=== PATIENT | female | born 1990 | race Caucasian/White ===

== ENCOUNTER 2018-05-14 18:13 | Outpatient (CLI) | payer MEDICAID, SELFPAY ==
[2018-05-14 19:23] VITALS: BMI 37.3
--- NOTE | 2018-05-15 09:22 | OB.TRI.NOTE ---
History of Present Illness Date of Service: 05/14/18 Reason For Visit: R/O LABOR Date of Service: 05/14/18 Final ORTEGA Source: LMP Gestational age: 37.1 Allergies No Known Allergies Allergy (Verified 05/14/18 19:32) NST - FHR Rate Baby A Baseline: 140 Variability:: Moderate Accelerations:: 15 x 15 Decelerations:: None NST Reactive:: Yes FHR Category:: Category I Uterine Activity:: occasional and irregular Impression/Plan 27yo @ 37.1 wks- false labor dc home NST reactive category 1
== END 2018-05-14 20:30 | disposition home or self-care (01) ==
LOC: WPOUT 19:08 → WP 19:10
PROVIDERS: Family Provider Obstetrics & Gynecology; Visit Provider Obstetrics & Gynecology
DX: O47.03 False labor before 37 completed weeks of gestation, third trimester (principal); Z3A.37 37 weeks gestation of pregnancy
CPT/HCPCS: 59025; 59050; 99218; G0378

== ENCOUNTER 2018-05-23 04:50 | Inpatient (IN) | payer MEDICAID, SELFPAY ==
[2018-05-23 05:20] VITALS: BMI 37.3
[2018-05-23] MEDS: Lactated Ringers 1,000 ML 50 ML IV ×3 (05:30→08:19)
[2018-05-23 05:53] LABS: Hemoglobin 11.2 g/dl (12.0-15.0); Mean Corpuscular Hgb 27.7 pg (27.0-32.0); Mean Corpuscular Volume 86.4 fL (81-99); Mean Platelet Vol. 11.1 fl (6.2-12.0); Platelet Count 244 K/mm3 (150-450); RBC Distribution Width CV 14.2 % (11.6-14.6); RBC Distribution Width SD 43.4 fl (35.1-43.9); Red Blood Count 4.05 M/mm3 (4.2-5.4); White Blood Count 14.4 K/mm3 (4.4-11.0)
[2018-05-23 06:26] LABS: Scan Indicated on CBC? Y/N NO
--- NOTE | 2018-05-23 06:33 | HP.PCM_ITS ---
- Problem List (1) Active labor at term Status: Acute (2) Rh negative state in antepartum period Status: Acute (3) History of depression Status: Acute (4) Anemia Status: Acute History Date of Admission: 05/23/18 Final ORTEGA: 06/03/18 Final ORTEGA Source: LMP Gestational age: 38 Weeks and 3 Days History of this : This is a 27 year-old, G 7, P 2042, at 38 weeks gestational age who presented in labor at 5 cm dilated. No vb, lof. +FM. Medical History: Medical History (Last Updated 05/23/18 @ 06:33 by Martha Strickland DO) Medical Z33.2 Surgical History: Surgical History (Last Updated 05/23/18 @ 06:33 by Martha Strickland DO) H/O oral surgery Z98.890 History of colposcopy Z98.890 Allergies No Known Allergies Allergy (Verified 05/23/18 05:42) Home Medications: Home Medications Vits [Prenatabs FA ] 1 tablet PO DAILY 05/09/13 Famotidine 10 mg PO BID 05/14/18 Smoking Status: Former smoker Number of Fetus(es): 1 Heart Tracin/mod sudhir/+accels/no decels TOCO Analysis: irritability History Past Pregnancies: Past Pregnancies Delivery Date Name GA/Weeks Outcome Route Weight Infant Gender Labor Length Anesthesia Delivery Location Provider FOB term term sab sab sab tab Labs: GBS neg, 1 hr GTT 126, Rh neg, antibody screen neg with 28 wk labs, syphilis NR, RI, hep B neg, HIV NR, GC/CT neg, UDS neg Expected Infant Delivery Method: Spontaneous Vaginal Number of Visits: 12 Review of Systems Gynecological: Reports: - - +Ctx's, no vb, no lof. +FM Physical Exam General: Alert, No apparent distress HEENT: Atraumatic Lungs: - - No increased resp effort Abdomen: Gravid Extremities:: No edema Neurological: Neuro grossly intact Estimated gestational size: Appropriate for gestational size Presentation: Cephalic Cervix Dilation (cm): 7 - exam per agronomy technician/Plan All Active Problems Active labor at term (Acute) Rh negative state in antepartum period (Acute) History of depression (Acute) History of delivery (Acute) Anemia (Acute) This is a 27 year-old, G 7, P 2, at 38 weeks gestational age who presented in labor at 5 cm dilated. - Admit for routine intrapartum care - GBS neg - Pt desires epidural
[2018-05-23] MEDS: fentaNYL-bupivacaine (epidural) 100 ML BAG EPIDURAL (06:59)
[2018-05-23] MEDS: 0.9% Saline Lock 10 ML Syringe IV ×2 (07:22→12:31)
[2018-05-23] MEDS: Ondansetron 4 MG/2 ML Vial IV (07:22)
--- NOTE | 2018-05-23 09:22 | PCM.PN.OB ---
Patient Problems: Active and Suspected Problems (Last Updated 05/23/18 @ 06:33 by Martha Strickland DO) Active labor at term (Acute) Rh negative state in antepartum period (Acute) History of depression (Acute) History of delivery (Acute) Anemia (Acute) Subjective: Resting comfortably in bed with epidural. Family at bedside. Objective: FHR 170, moderate variability, accels, no decels. TOCO: every 2-3 minutes. Cervix 9cm/90%/-1. AROM for large amount of clear fluid. 9cm/100%/+1. Patient not feeling pressure. - Physical Exam Weight: 210 lb 12.191 oz Body Mass Index (BMI) 37.3 Intake and Output for Last 24 Hours 05/21/18 05/22/18 05/23/18 23:59 23:59 23:59 Intake Total 1999 / 1999 Output Total 100 / 100 Balance 1900 / 1900 Laboratory Tests Past 24 Hrs 05/23/18 05/23/18 05/23/18 05:30 05:30 05:30 WBC 14.4 H RBC 4.05 L Hgb 11.2 L Hct 35.0 L MCV 86.4 MCH 27.7 MCHC 32.0 RDW 14.2 RDW Differential 43.4 Plt Count 244 MPV 11.1 Blood Type Cancelled A NEGATIVE A1 Antigen Typing Cancelled Rho(D) Type Cancelled Antibody Screen Cancelled NEGATIVE Medical Necessity - Tobacco Use Smoking Status: Former smoker Assessment/Plan All Active Problems (Last Updated 05/23/18 @ 06:33 by Martha Strickland DO) Active labor at term (Acute) Rh negative state in antepartum period (Acute) History of depression (Acute) History of delivery (Acute) Anemia (Acute) A;Active Labor, progressing Category 2 FHT P: 1) Labor progressing, continue with expectant management. 2) Side lying with peanut ball. Anticipate vaginal delivery soon. 3) updated on patient status and tachycardia. FHR increased after epidural placed and ephedrine dose. Patient afebrile. Maternal HR 120 but has been since admission. Will continue to monitor.
[2018-05-23] MEDS: Oxytocin 30 units/NS 500 ml 30 UNITS/500 ML IV.SOLN 334 UNITS IV (09:45)
--- NOTE | 2018-05-23 10:01 | PCM.OB.VAG ---
- Problem List (1) (normal spontaneous vaginal delivery) Status: Acute (2) Shoulder dystocia, delivered Status: Acute Vaginal Delivery Maternal Presentation: Active Labor Method of Induction: Amniotomy Amniotic Membrane Rupture Type: Artificial Amniotic Fluid Description: Clear Final ORTEGA: 06/03/18 Gestational age: 38 Weeks and 3 Days Date of Procedure: 05/23/18 Pre-Operative Diagnosis: Active Labor Post-Operative Diagnosis: Surgery/ Procedure Performed: Spontaneous Vaginal Delivery Type of Anesthesia: Epidural Description of Procedure: Progressed in active labor and began to feel pressure. Complete and feeling pressure to push. of viable male over intact perineum. APGARS 8,9 with weight pending. Complicated by mild shoulder dystocia. Head delivered and shoulders not forthcoming. McRobert's position and then retrieval of posterior arm as posterior nuchal hand already present. 15 second should dystocia. Infant delivered without further complications, placed on maternal abdomen, spontaneous cry. Mouth and nares suctioned for secretions. Infant with diffuse papular white rash, peds notified. No signs of chorioamnionitis. No maternal fever, or foul odor. Maternal HR elevated upon admission and FHR increased after epidural placed and ephedrine given. FHR returned to 150's prior to delivery. Pitocin started for active 3rd stage management. Placenta delivered with maternal effort, 3 vessel cord, intact. Fundus firm and hemostasis achieved. Perineum inspected and intact, no repair needed. EBL 200ml. Mom and baby stable. Family bonding well. Mom planning on . notified of delivery. Cord gases obtained. Sponge and instrument count correct. Presentation: Vertex Placental Delivery Description: Spontaneous Placenta Disposition: [facility] Cord Vessel Description: 3 Vessels Cord Gases drawn per routine: ABG, VBG Cord Entanglement: None Estimated Blood Loss: 200 ml A gender: Male (1 minute): 8 (5 minute): 9 Episiotomy Description: None Laceration: None Medications given after delivery: IV Pitocin Complications: None - Mild Should dystocia. McRobert's and posterior arm retriveal lasting 15 seconds from head to body delivery.
[2018-05-23] MEDS: Oxytocin 30 units/NS 500 ml 30 UNITS/500 ML IV.SOLN 167 UNITS IV (10:15)
[2018-05-23] MEDS: Ibuprofen 600 MG Tablet PO (13:26)
[2018-05-23 16:00] VITALS: BP 119/70; PULSE 104; RESP 18; TEMP 37.1
[2018-05-23 20:20] VITALS: BP 128/81; PULSE 92; RESP 16; TEMP 37.4
[2018-05-24 00:05] VITALS: BP 134/87; PULSE 96; RESP 16; TEMP 36.8
[2018-05-24] MEDS: Ibuprofen 600 MG Tablet PO ×2 (00:30→10:04)
[2018-05-24 05:05] VITALS: BP 114/70; PULSE 96; RESP 16; TEMP 36.6
--- NOTE | 2018-05-24 07:15 | PCM.PN.OB ---
Patient Problems: Active and Suspected Problems (Last Updated 05/23/18 @ 06:33 by Martha Strickland DO) Active labor at term (Acute) Rh negative state in antepartum period (Acute) History of depression (Acute) History of delivery (Acute) Anemia (Acute) (normal spontaneous vaginal delivery) (Acute) Shoulder dystocia, delivered (Acute) Subjective: Doing well per patient and nursing staff. Ambulating, voiding, and passing flatus. without difficulty. Denies LERMA,vis chg's,CP,SOB,increased vaginal bleeding or clots. Would like D/C home today. - Physical Exam General: Alert, Oriented x3, Cooperative HEENT: Atraumatic, Normocephalic Neck: Supple Lungs: Clear to auscultation, Normal air movement, No rhonchi, No wheeze Cardiovascular: Regular rate, Regular Rhythm, No murmurs Abdomen: Bowel Sounds Present, Soft, - - Fundus firm, 2 below U Extremities: No edema Psych/Mental Status: Normal Affect, Appropriate Vital Signs Temp Pulse Resp BP 97.9 F 96 16 114/70 05/24/18 05:05 05/24/18 05:05 05/24/18 05:05 05/24/18 05:05 Oxygen Delivery Method Room Air Weight: 210 lb 12.191 oz Body Mass Index (BMI) 37.3 Intake and Output for Last 24 Hours 05/22/18 05/23/18 05/24/18 23:59 23:59 23:59 Intake Total 1999 / 1999 Output Total 280 / 280 Balance 1720 / 1720 Medical Necessity - Tobacco Use Smoking Status: Former smoker Assessment/Plan All Active Problems (Last Updated 05/23/18 @ 06:33 by Martha Strickland DO) Active labor at term (Acute) Rh negative state in antepartum period (Acute) History of depression (Acute) History of delivery (Acute) Anemia (Acute) (normal spontaneous vaginal delivery) (Acute) Shoulder dystocia, delivered (Acute) A:PPD #1 P: 1) D/C home today 2) Routine , discharge, and instructions given. 3) Return in 2 and 6 weeks .
[2018-05-24 08:55] VITALS: BP 122/77; PULSE 94; RESP 16; TEMP 36.4; O2SAT 99
[2018-05-24] MEDS: Prenatal Vits Tablet 1 TABLET PO (10:04)
[2018-05-24] MEDS: Senna/Docusate Sodium 1 Tablet PO (10:04)
[2018-05-24] MEDS: Famotidine 20 MG Tablet 10 MG PO (10:05)
--- NOTE | 2018-05-24 12:06 | DCINST_ITS ---
Discharge Diet: No Restrictions Discharge Activity: Return to Normal Activity, May not drive while taking narcotic pain medications., May Shower, May Take a Tub Bath May resume sexual activity in: 4-6 weeks Weight Bearing Status: Full weight bearing Additional Activity Instructions:: Nothing in the vagina for 4-6 weeks. You may return to work/school in 6 weeks. Call your doctor if your incision/area has: Continuous Slow Oozing, Sudden Increased Bleeding, Increased Pain/ Swelling, Increased Redness, Foul Smelling Discharge Call your doctor if you observe: Fever of 101 or Higher, Inability to urinate, Inability to have a bowel movement, Using more than one pad per hour, Shortness of breath, Chest pain, Increased palpitations (irregular heartbeat), Calf discomfort, Uncontrolled pain Additional Instructions: If you experience any of the following, contact your healthcare provider. * Bleeding that soaks a pad every hour for 2 hours * Fever 100.4 or higher * Unrelieved incision or abdominal pain * Swelling, redness, discharge or bleeding from your incision or episiotomy site * Your incision begins to separate * Problems urinating (including inability to urinate or burning while urinating). * Visual changes * Severe headache * Flu-like symptoms * Pain or redness in one of both of your breasts * Pain, warmth, tenderness or swelling in your legs, especially the calf area * Frequent nausea and vomiting * Symptoms of depression or anxiety If you experience any of the following, call 911 or go to the nearest Emergency Room. * Chest pain * Problems breathing * Seizure activity * Partial or complete paralysis of a body part, slurred speech, weakness or drooping of the face, or a sudden inability to walk or hold your balance Allergies/Adverse Reactions: Allergies No Known Allergies Allergy (Verified 05/23/18 05:42) Medications to take at Discharge Vits [Prenatabs FA ] 1 tablet PO DAILY 05/09/13 Famotidine 10 mg PO BID 05/14/18 Please Follow Up With: Alysa Rosenberg MD When: Call to make an appointment with your doctor in 2 and 6 weeks. If you had elevated Blood Pressure or 4th degree laceration you will need to be seen in 2 weeks. Test Results: Test results from this visit will be discussed in further detail at your follow- up appointment, if applicable.
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
--- NOTE | 2018-05-25 14:39 | CASEMGMT ---
Addendum entered and electronically signed by Deborah Barrow 05/26/18 16:48: Reviewed and approve BODY MAKE UP ARTIST student internal medicine specialist documentation below. -ARTIE Whipple, PATROL POLICE SERGEANT Original Note: Social Work Labor and Delivery Early Head Start referral faxed securely to Rosalind Hickey at [facility] via verbal approval from [facility]. No other services requested or indicated at this time. -NATHAN Low Social Work Tack Driller.
== END 2018-05-24 13:55 | disposition home or self-care (01) | DRG 560 ==
PROVIDERS: Obstetrics & Gynecology; Admitting Provider Obstetrics & Gynecology; Referring Provider Obstetrics & Gynecology; Visit Provider Obstetrics & Gynecology
DX: O66.0 Obstructed labor due to shoulder dystocia (principal); Z3A.38 38 weeks gestation of pregnancy; Z37.0 Single live birth; Z87.891 Personal history of nicotine dependence; Z67.91 Unspecified blood type, Rh negative; O76 Abnormality in fetal heart rate and rhythm complicating labor and delivery
CPT/HCPCS: 59050; 85027; 86850; 86900; 86901; 99218; J7120; A4216; G0378; J2405; J3490

== ENCOUNTER 2018-06-30 13:54 | Day surgery (SDC) | payer MEDICAID, SELFPAY ==
--- NOTE | 2018-06-28 11:48 | HP.PCM_ITS ---
History and Physical Date of Admission: 06/30/18 Susanne Knutson is a 27 year old female who presents for sterilization consultation. Pt would desires permanent sterilization- declining. Pt denies CP, SOB, dizziness. ? PAST?MEDICAL?HISTORY PAST MEDICAL HISTORY Diagnosis Date ? Abnormal glandular Papanicolaou smear of cervix 2010 ? Abn. Pap smear (cervix) ? 04/2010 ? Anemia ? ? Chlamydia 2008 ? Complete miscarriage ? ? Pt has had 2 miscarriage's ? Depression complicating , antepartum 04/04/2013 ? Gonorrhea 2008 ? depression ? ? RECURRENT UTI ? ? none since 2015 ? Rh negative status during 11/16/2012 ? PAST?SURGICAL?HISTORY PAST SURGICAL HISTORY Procedure Laterality Date ? COLPOSCOPY (VAGINOSCOPY) ? ? ? Colposcopy ? MED INC ALL EX DRUG ? 04/2010 ? ORAL SURGERY PROCEDURE ? ? ? FAMILY?HISTORY FAMILY HISTORY Problem Relation Age of Onset ? No Known Problems Mother ? ? No Known Problems Father ? ? Diabetes Paternal Grandmother ? ? Heart Paternal Grandmother ? ? Hypertension Paternal Grandmother ? ? Heart Paternal Grandfather ? ? Asthma Son ? ? Asthma Daughter ? ? Asthma Sister ? ? SOCIAL?HISTORY Social History Socioeconomic History Marital status: Single Spouse name: Not on file Number of children: 2 Years of education: 15 Highest education level: Not on file Social Needs Financial resource strain: Not on file Food insecurity - worry: Not on file Food insecurity - inability: Not on file Transportation needs - medical: Not on file Transportation needs - non-medical: Not on file Occupational History Occupation: [employer] Employer: [employer] Occupation: [employer] Employer: [employer] Tobacco Use Smoking status: Former Smoker Years: 6.00 Types: Cigarettes Quit date: 10/28/2012 Years since quittin.6 Smokeless tobacco: Never Used Substance and Sexual Activity Alcohol use: No Drug use: No Sexual activity: Yes Partners: Male Other Topics Concerns: Not on file Social History Narrative Not on file ? CURRENT?MEDICATIONS ? Current Outpatient Medications: Qeamdxnc-Yn-Woq-Fe-FA ( VITAMIN) tab Take 1 tablet by mouth. simethicone, chewable (MYLICON) 80 mg chewable tablet Take 1 tablet by mouth every 6 hours as needed. ibuprofen (MOTRIN) 600 mg tablet Take 1 tablet by mouth every 6 hours as needed. FOR PAIN. ? No current facility-administered medications for this visit. Allergies As of Date: 06/20/2018 (No Known Allergies) Fully Assessed 06/20/2018 ? ? REVIEW OF SYSTEMS Abdomen: No abdominal pain, nausea, vomiting, diarrhea, or constipation. Bladder: no dysuria .. Expanded ROS: GENERAL: No weight loss, malaise or fevers Allergies and current medication updated:Yes ? EXAM: BP 108/70 Ht 5' 3.5 (1.61m) Wt 183 lb (83.0kg) BMI 31.90 kg/(m^2). GENERAL: pleasant, female in no apparent distress HEENT: Normocephalic, atraumatic, mucus membranes moist and no lesions DERMATOLOGY: Normal, without lesions, non-icteric and non-hirsute CARDIAC: regular rate and rhythm CHEST: Clear to auscultation Normal inspiratory effort NEURO: alert and oriented x3,exam grossly non-focal ? ASSESSMENT AND PLAN: Encounter Diagnosis ? ? ICD-10-CM ? 1. Consultation for female sterilization Z30.09 ? ? 2. Pt scheduled for Laparoscopic bilateral salpingectomy - pt declines LARCs. 3. Pt has been counseled on risks/benefits and alternatives of surgery including but not limited to anesthesia, bleeding, infection, injury to pelvic structures including bowel, bladder, ureters and vessels. Pt wishes to proceed with surgery at this time. 4. Post op pain meds given (motrin, and mylicon) ? Alysa Rosenberg MD ?
[2018-06-30] MEDS: Bupivacaine Mpf 0.5% 30 ML VIAL (13:55)
[2018-06-30 14:15] VITALS: BP 122/68; PULSE 81; RESP 16; TEMP 37; O2SAT 100; BMI 32.4
[2018-06-30 14:15] LABS: Internal QC Validated? YES +Cl - CLEAR BKGD; Pregnancy, Urine Negative Negative
--- NOTE | 2018-06-30 14:41 | PCM.OPRPT ---
Report of Operation Date of Procedure: 06/30/18 Pre-Operative Diagnosis: desires sterilization Post-Operative Diagnosis: same Surgery/Procedure Performed:: Laparoscopic Bilateral salpingectomy Description of Surgical Findings:: normal tubes and ovaries bilaterally Type of Anesthesia:: General Special Medications: marcaine Specimen's removed: Bilateral tubes Drains: none Estimated Blood Loss (mL): 5 Fluids Replaced: 800 Description of Procedure: operative note: After informed consent was obtained patient was taken to the operating room she was placed in supine position she was given anesthesia. She was then placed in the [facility] stirrups and she was prepped and draped in normal sterile fashion. Bladder was drained prior to the start of procedure approximately 50 cc of clear yellow urine was expelled. At this time attention was turned to the vaginal portion where weighted speculum placed at posterior fornix vagina single-tooth tenaculum was used to gently grasp the internal the cervix. uterus was gently sounded to approximately 10cm. Uterine manipulator was placed without difficulty. Legs then placed in parallel with the abdomen the tenaculum and the weighted speculum were removed. 2 towel clamps were placed superior to umbilicus. After Marcaine was injected in umbilicus a small incision was made and a 5 mm trocar was placed under direct visualization. CO2 gas was used to insufflate the intra-abdominal cavity. Upon inspection no gross abnormalities uterus tubes and ovaries appeared to be normal. At this time then the LLQ and RLQ ports were placed again Marcaine was injected small incision was made a knife and the 5 mm trocar was placed. At this time then tubes were traced back to the fimbriated ends. Ligasure was used to coagulate and ligate along mesosalpinx bilaterally until tubes removed completely. Good hemostasis was appreciated. At this time procedure was deemed complete successful. The gas was desufflated on from the intra-abdominal cavity. The trochars were removed. Skin was closed using 4-0 Monocryl in a subcutaneous fashion. Dermabond glue was placed. Instrument lap and needle counts were correct ?2. The uterine manipulator was removed. Vaginal sweep was performed it was negative. There were no complications anticipated normal postoperative course for this patient. Grafts/Implants Used: none - Complications none - Admit VTE Documentation VTE Present on Admission: Yes VTE Mechan Device Prophylaxis: SCD's VTE Pharm Prophylaxis ordered?: No
--- NOTE | 2018-06-30 15:00 | FALS_PTH ---
PATIENT: GHAZAL ACOSTA LOC: [facility] [place] U#:[id number] AGE/SX: 27/F ROOM: RE06/30/[address]: Dr. Alysa Rosenberg, MDDOB: 1990 BED: DIS: 06/30/2018 SPEC #: [id number] RECD: 07/01/18 07:32 STATUS: PERNELL VICTORIANO #: [id number] OPAL: 06/30/18 15:[address]: Alysa Rosenberg DEPT: SURGICAL PATHOLOGY RECD BY: Cody Brand ENTERED: 07/01/18 10:03 SP TYPE: FALL TUBES OTHR DR: No Primary Care Phys Tissues: Fallopian tube Procedures: Surgery Specimen Level II HEADER OPERATION: Laparoscopic salpingectomy PRE-OP DIAGNOSIS: Sterilization request TISSUE SUBMITTED: Bilateral fallopian tubes MICROSCOPIC DIAGNOSIS Bilateral fallopian tubes, salpingectomy: Bilateral fallopian tubes including fimbrial ends, no pathologic diagnosis. SJ:ori 07/04/18 MICROSCOPIC DESCRIPTION Slides are reviewed. GROSS DESCRIPTION Received is one container labeled with the patient's name and designated bilateral fallopian tubes. The specimen consists of two fallopian tubes with an average length of 5 cm and has an average diameter of 0.6 cm. Both fallopian tubes have normal fimbriated ends. No mass lesions are identified. One fallopian tube is inked black. Senior Marketing Specialist sections of both fallopian tubes are submitted in one cassette. / AM:ori 07/01/18 TC:4 CPT: 94308 x2
--- NOTE | 2018-06-30 15:24 | DCINST_ITS ---
Discharge Diet: No Restrictions, - - Increase fluid intake for 48 hours. Discharge Activity: Return to Normal Activity, May Drive - when you are no longer taking narcotic pain medications., May Shower, May Take a Tub Bath - in 7 days., - - Ambulate often the next week after surgery. May resume sexual activity in: 2 weeks Lifting Restrictions: 20 Additional Activity Instructions:: Nothing in the vagina for the next 5 days. Call your doctor if your incision/area has: Continuous Slow Oozing, Sudden Increased Bleeding, Increased Pain/ Swelling, Increased Redness, Foul Smelling Discharge, Swelling at the incision site Call your doctor if you observe: Fever of 101 or Higher Cleanse incision/area with: - - skin glue on incisions- you may shower and let soap and water run over them- dab dry. do not pick off glue Allergies/Adverse Reactions: Allergies No Known Allergies Allergy (Verified 06/30/18 14:14) Medications to take at Discharge Vits [Prenatabs FA ] 1 tablet PO DAILY 05/09/13 Primary Care Physician: Care Physician,No Primary [Primary Care Provider] - Test Results: Test results from this visit will be discussed in further detail at your follow- up appointment, if applicable. Please Follow Up With: Alysa Rosenberg MD When: as scheduled
[2018-06-30 15:30] VITALS: BP 104/81; BP 122/68; PULSE 81; RESP 18; TEMP 36.9; O2SAT 94
[2018-06-30 15:45] VITALS: BP 116/73; BP 122/68; PULSE 82; RESP 18; O2SAT 100
[2018-06-30 15:58] VITALS: BP 122/68; PULSE 74; RESP 18; O2SAT 100
[2018-06-30 16:15] VITALS: BP 113/68; BP 122/68; PULSE 65; RESP 18; TEMP 36.7; O2SAT 100
[2018-06-30 16:45] VITALS: BP 122/68
== END 2018-06-30 16:53 | disposition home or self-care (01) ==
LOC: SDC 13:56 → AC 13:57
PROVIDERS: Referring Provider Obstetrics & Gynecology; Visit Provider Obstetrics & Gynecology
PROC: (CPT 58661; principal; 2018-06-30 14:45)
DX: Z30.2 Encounter for sterilization (principal); Z87.891 Personal history of nicotine dependence
CPT/HCPCS: 58661; 81025; 88302; J7120; J2405

== ENCOUNTER 2018-09-23 22:50 | Emergency (ER) | payer OTHER, MEDICAID, SELFPAY ==
[2018-09-23 22:50] VITALS: BP 162/93; PULSE 86; RESP 18; TEMP 36.7; O2SAT 100; BMI 32.4
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
--- NOTE | 2018-09-23 23:05 | RAD_ITS ---
HISTORY:RIGHT SHOULDER PAIN FROM MOVING PATIENT THIS EVENING. RIGHT SHOULDER PAIN FROM MOVING PATIENT THIS EVENING. COMPARISON: None FINDINGS: # of images incl. paperwork: 2 XR Shoulder Min 2 Views: Right BONE AND JOINTS: No acute fracture or subluxation. SOFT TISSUES: There is increase in density seen within the region of the rotator cuff may represent mild calcific tendinitis. No radiopaque foreign body. RAD/Shoulder min 2 Views IMPRESSION: Question calcific tendinitis at 2320 Reported and signed by: Paulette Dooley DO Electronically Signed: Paulette Dooley DO at 23:19 EDT Tel , Service support ,
[2018-09-23] MEDS: Naproxen 500 MG Tablet PO (23:06)
[2018-09-24] MEDS: HYDROcodone Bitartrate/Apap 5/325 Tablet PO (00:18)
[2018-09-24 00:23] VITALS: BP 146/78; PULSE 86; RESP 17; O2SAT 98
== END 2018-09-24 00:24 | disposition home or self-care (01) ==
PROVIDERS: Emergency Provider Emergency Medicine
DX: S43.401A Unspecified sprain of right shoulder joint, initial encounter (principal); X50.3XXA Overexertion from repetitive movements, initial encounter; Y93.89 Activity, other specified; Y92.89 Other specified places as the place of occurrence of the external cause; Y99.0 Civilian activity done for income or pay
CPT/HCPCS: 73030; 99284

== ENCOUNTER → 2018-10-12 12:33 | Outpatient (CLI) | payer OTHER, SELFPAY ==
[2018-09-29 08:05] VITALS: BMI 32.4
--- NOTE | 2018-10-12 12:36 | MRI_ITS ---
STUDY: MRI RIGHT SHOULDER REASON FOR EXAM: Pain with limited range of motion, injury 09/22/2018, evaluate for rotator cuff tear. TECHNIQUE: Standardized fat and water weighted pulse sequences were obtained in all 3 orthogonal planes. COMPARISON: Radiographs 09/23/2018. FINDINGS: There are lobulated signal voids at the anterior aspect of the supraspinatus tendon (T2 sagittal images 14-16) with adjacent inflammation (T2 coronal images 14, 15) consistent with calcific tendinitis. There is no discrete tear of the supraspinatus tendon. Normal infraspinatus tendon. Normal subscapularis tendon. Normal teres minor tendon. Normal supraspinatus muscle. There are low-grade strains of the infraspinatus and teres minor muscles (T2 coronal images 1-4). Normal subscapularis muscle. Normal glenohumeral articulation. There is mild reactive bone edema in the anterior aspect of the greater tuberosity. Normal biceps labral complex. Normal intracapsular long biceps tendon. Normal labrum. Normal capsulo- ligamentous complex. Normal acromioclavicular articulation. There is a Type II morphology (curved), with a neutral orientation. There is a small volume of subacromial-subdeltoid bursal fluid (T2 coronal images 12-14). Normal visualized coracohumeral and coracoacromial ligaments. Normal deltoid muscle. Normal trapezius muscle. MRI/Upper Ext Joint Only(Routine) IMPRESSION: Supraspinatus calcific tendinitis. Low-grade strains of the infraspinatus and teres minor muscles. Very mild subacromial-subdeltoid bursitis. No demonstrated rotator cuff tear. Electronically Signed: Antolin Esparza MD at 13:47 EDT Tel , Service support ,
== END ==
PROVIDERS: Referring Provider Orthopaedic Surgery; Visit Provider Orthopaedic Surgery
DX: S46.011A Strain of muscle(s) and tendon(s) of the rotator cuff of right shoulder, initial encounter (principal)
CPT/HCPCS: 73221

== ENCOUNTER 2018-12-16 09:30 | Outpatient (RCR) | payer OTHER, SELFPAY ==
[2018-10-27 13:09] VITALS: BMI 32.4
[2018-11-11 13:35] VITALS: BMI 32.4
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
--- NOTE | 2018-12-16 09:55 | HP.PTDCSUM ---
HP - PT D/C Summary It has been my pleasure to treat GHAZAL ACOSTA under orders from Lucie Ambrose DO, for the diagnosis of RIGHT SHOULDER STRAIN for a total of 8 visit(s). Discharge Date: 12/16/18 Please see the following information for a summary of their discharge status. - Subjective Subjective: PATIENT REPORTS THAT USING HER SHOULDER TO CARRY AND LIFT THINGS IS A LOT BETTER. WENT BACK TO WORK AT [employer] 12/01/18 AND IT IS GOING FINE. NOT SURE WHEN SHE IS GOING TO GO BACK TO WORK AT THE [employer]. IT FEELS GOOD TODAY. PATIENT REPORTS SHE CAN DO THE EX'S BY HERSELF NOW AND SHE PLANS TO GRADUALLY RETURN TO HER GYM EX'S. - Pain R shoulder Pain Intensity (Out of 10): 1 - Overall Improvement % Improvement: 85 - Objective Objective/Function: PATIENT HAS FULL PAINFREE RIGHT SHOULDER ROM AND STRENGTH ALL PLANES WITH TESTING TODAY. SHE IS INDEP WITH AN EX PROGRAM AND BACK TO WORK. ALL GOALS MET. - Goals Goal 1:: DECREASE C/O RIGHT SHOULDER PAIN Goal Progress: Goal Met Goal 2:: IMPROVE RIGHT UE FUNCTIONAL ROM Goal Progress: Goal Met Goal 3:: IMPROVE RIGHT UE FUNCTIONAL STRENGTH Goal Progress: Goal Met Goal 4:: INSTRUCT IN PROPHYLAXIS Goal Progress: Goal Met - Plan Plan: D/C TO HEP - PATIENT AGREEABLE. - D/C Information If there are questions or concerns regarding this patient's physical therapy, please feel free to call me at [phone]. Thank you for the referral of this patient. Sincerely, Belkys Lewis, PT, Cert MDT
== END 2018-12-16 19:00 | disposition home or self-care (01) ==
LOC: PT 09:30
PROVIDERS: Referring Provider Orthopaedic Surgery; Visit Provider Orthopaedic Surgery
DX: S46.911D Strain of unspecified muscle, fascia and tendon at shoulder and upper arm level, right arm, subsequent encounter (principal)
CPT/HCPCS: 97110; 97140; 97161; 97530

== ENCOUNTER 2020-01-08 19:23 | Outpatient (RCR) | payer MEDICAID, SELFPAY ==
[2018-11-28 09:38] VITALS: BMI 32.4
== END 2020-01-10 23:59 ==
LOC: EMPH 19:23
PROVIDERS: Visit Provider Family Medicine Geriatric Medicine
DX: Z11.59 Encounter for screening for other viral diseases (principal)
CPT/HCPCS: 87635; U0003

== ENCOUNTER → 2020-01-22 09:08 | Outpatient (CLI) | payer MEDICAID, SELFPAY ==
[2018-11-28 09:38] VITALS: BMI 32.4
[2020-01-22 10:22] LABS: Thyroid Stim Hormone (TSH) 2.66 uIU/mL (0.358-3.74)
== END ==
PROVIDERS: PCP Family Medicine; Referring Provider Registered Nurse; Visit Provider Registered Nurse
DX: Z00.00 Encounter for general adult medical examination without abnormal findings (principal)
CPT/HCPCS: 36415; 84443

== ENCOUNTER 2020-02-09 06:37 | Outpatient (RCR) | payer MEDICAID, SELFPAY ==
[2018-11-28 09:38] VITALS: BMI 32.4
== END 2020-02-10 23:59 ==
LOC: EMPH 06:37
PROVIDERS: PCP Family Medicine; Referring Provider Family Medicine Geriatric Medicine; Visit Provider Family Medicine Geriatric Medicine
DX: Z03.818 Encounter for observation for suspected exposure to other biological agents ruled out (principal)
CPT/HCPCS: 87426

== ENCOUNTER 2020-03-05 11:52 | Outpatient (RCR) | payer MEDICAID, SELFPAY ==
[2018-11-28 09:38] VITALS: BMI 32.4
== END 2020-03-11 23:59 ==
LOC: EMPH 11:52
PROVIDERS: PCP Family Medicine; Referring Provider Family Medicine Geriatric Medicine; Visit Provider Family Medicine Geriatric Medicine
DX: Z03.818 Encounter for observation for suspected exposure to other biological agents ruled out (principal)
CPT/HCPCS: 87426

== ENCOUNTER 2020-03-14 14:00 | Outpatient (RCR) | payer MEDICAID, SELFPAY ==
[2018-11-28 09:38] VITALS: BMI 32.4
== END 2020-04-11 23:59 ==
LOC: EMPH 14:00
PROVIDERS: PCP Family Medicine; Referring Provider Family Medicine Geriatric Medicine; Visit Provider Family Medicine Geriatric Medicine
DX: Z03.818 Encounter for observation for suspected exposure to other biological agents ruled out (principal)
CPT/HCPCS: 87426

== ENCOUNTER 2020-04-04 20:52 | Emergency (ER) | payer MEDICAID, SELFPAY ==
[2018-11-28 09:38] VITALS: BMI 32.4
[2020-04-04 20:53] VITALS: BP 141/94; PULSE 86; RESP 15; TEMP 36.3; O2SAT 99; BMI 35.4
[2020-04-04 20:56] VITALS: O2SAT 97
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
== END 2020-04-04 21:57 | disposition home or self-care (01) ==
PROVIDERS: Emergency Provider Emergency Medicine; PCP Family Medicine
DX: S80.211A Abrasion, right knee, initial encounter (principal); V43.52XA Car driver injured in collision with other type car in traffic accident, initial encounter; Y93.9 Activity, unspecified; Y92.410 Unspecified street and highway as the place of occurrence of the external cause; Y99.9 Unspecified external cause status; Z87.891 Personal history of nicotine dependence
CPT/HCPCS: 71046; 73564; 99284

== ENCOUNTER 2021-01-09 12:43 | Emergency (ER) | payer MEDICAID, SELFPAY ==
[2021-01-09 12:44] VITALS: BP 137/98; PULSE 122; RESP 24; TEMP 35.9; O2SAT 98; BMI 40.7
[2021-01-09 12:54] VITALS: O2SAT 98
--- NOTE | 2021-01-09 13:06 | EDS_ITS ---
HPI History of Present Illness Chief Complaint: Shortness of Breath Detail of Chief Complaint: Shortness of breath since yesterday Informant: patient Narrative Narrative: Patient presents to the emergency department complaint of shortness of breath that became worse yesterday. Patient states that she was diagnosed with COVID-19 8 days ago and had symptoms for about 9 days. She denies any chest pain. She does describe some exertional dyspnea. She has had fever and chills and body aches. Patient states that all her kids had Covid but they were relatively asymptomatic. Patient has not had the Covid vaccine. Patient at times coughing up some yellow sputum. [facility] Medical History (Updated 01/09/21 @ 16:[address] 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 Home Medications NK 04/04/20 [History Last Taken Unknown] Allergy/AdvReac Type Severity Reaction Status Date / Time No Known Allergies Allergy Verified 01/09/21 12:46 Surgical History H/O oral surgery History of colposcopy Social History (Updated 11/28/18 @ 10:52 by ANJALI Mejias) Smoking Status: Former smoker ROS ROS ED Constitutional Constitutional ED: Reports systems reviewed and no addt'l complaints, except as documented; Denies body ache(s), change in weight or chills Eyes Eyes: Denies acute decrease in peripheral vision, change in vision, double vision or loss of vision ENT ENT ED: Reports none; Denies ear pain, lip swelling, loss taste/smell, neck pain, otalgia or sore throat Cardiovascular Cardiovascular: Reports none; Denies abdominal pain, chest pain with activity, leg edema, lightheadedness, palpitations, rapid heart rate or syncope Respiratory/Chest Respiratory/Chest: Reports cough, dyspnea and sputum Gastrointestinal Gastrointestinal: Reports none; Denies abdominal pain, change in stool character, diarrhea, hematemesis, hematochezia, melena, rectal bleeding or vomiting Genitourinary Genitourinary ED: Reports none; Denies abdominal discomfort, anuria, dysuria, genital pain or polyuria Musculoskeletal Musculoskeletal: Reports myalgias Integumentary Reports none; Denies abscess or rash Neurologic Neurologic: Reports none; Denies abnormal gait, confusion, focal weakness, frequent falls, headache(s), loss of vision, numbness, paresthesias, radicular pain, vertigo or weakness Psychiatric Psychiatric: Reports systems reviewed and no addt'l complaints, except as documented and none; Denies behavioral changes, confusion, difficulty concentrating, hallucinations, suicidal ideation, tactile hallucinations or visual hallucinations Endocrine Endocrinology: Denies none, cold intolerance, excessive sweating, fatigue or heat intolerance Hematologic/Lymphatic Hematologic/Lymphatic: Reports none; Denies anemia, easy bleeding or easy bruising Allergic/Immunologic Allergic/Immunologic ED: Denies as per HPI, none, lip swelling, mouth swelling, throat swelling, tongue swelling or hives EXAM Physical Exam Const Vital Signs: 01/09/21 12:44 01/09/21 12:54 01/09/21 15:00 Temperature 96.6 F L 98.7 F Temperature Source Temporal Oral Pulse Rate 122 H 96 Respiratory Rate 24 H 16 Respiratory Effort Normal Non-Labored Respiratory Depth Normal Respiratory Pattern Normal Blood Pressure 137/98 H 126/89 H Blood Pressure Mean 111 101 Pulse Ox 98 97 Oxygen Delivery Method Room Air Room Air Room Air Positive well nourished and well developed General Appearance ED: well developed and NAD HEENT Reports TM's clear and moist mucous membranes normocephalic and atraumatic; Negative for trauma or tenderness Tympanic Membrane ED: Yes TM's clear Eyes PERRL and EOMs intact bilaterally General Eye ED: Negative for pale conjunctiva or scleral icterus Neck no lymphadenopathy, supple and no JVD General: Negative for tenderness Chest Wall inspection of chest normal and palpation of chest normal Chest: Negative for tenderness Resp normal respiratory effort and clear to auscultation bilaterally Resp Narrative: Patient has mild tachypnea. No accessory muscle use or retractions. No exertional dyspnea. Effort and Inspection: Negative for respiratory distress or pain with movement Auscultation: Negative for rhonchi, wheezes or diminished lung sounds Cardio regular rate, regular rhythm, S1 normal heart sound, S2 normal heart sound and no murmurs Peripheral Pulses: pulses 2+ throughout GI normal to inspection, nondistended, normoactive bowel sounds, soft to palpation, non-tender, non-distended and no masses Back/Spine no CVA tenderness and no thoracic nor lumbar tenderness Extremity normal to inspection General Extremety ED: Negative for edema General Extremity: Negative for edema Neuro oriented x3, CN's II-XII intact bilaterally, no sensory deficits noted and gait normal Sensorium / Orientation: awake, alert, oriented to person, oriented to place and oriented to time Motor Exam: strength 5/5 throughout and strength abnormal Psych mental status grossly normal Skin no rashes or lesions noted and no wounds MDM MDM MDM Narrative Medical decision making narrative: Work-up shows Covid pneumonia without evidence of PE. Patient is not hypoxic in the department. Patient tells me that she was supposed to have monoclonal infusion last week but missed her appointment. Patient would be day 10 tomorrow and is not interested in doing t he monoclonal infusion at this time. Lab Data Labs: Laboratory Results - last 24 hr 01/09/21 01/09/21 01/09/21 13:25 13:25 13:25 WBC 6.8 RBC 5.13 Hgb 13.7 Hct 41.1 MCV 80.1 L MCH 26.7 L MCHC 33.3 RDW Std Deviation 40.0 RDW Coeff of [place] 13.6 Plt Count 180 MPV 10.9 Immature Gran % (Auto) 0.300 Neut % (Auto) 67.4 Lymph % (Auto) 26.2 [place] % (Auto) 5.9 Eos % (Auto) 0.1 Baso % (Auto) 0.1 Absolute Neuts (auto) 4.6 Absolute Lymphs (auto) 1.78 Nucleated RBC % 0 D-Dimer Quant (PE/DVT) 0.54 H* Sodium 137 Potassium 3.6 Chloride 103 Carbon Dioxide 26.0 Anion Gap 8 BUN 10 Creatinine 0.77 Estim Creat Clear Calc 88.37 Est GFR (MDRD) Af Amer 113 Est GFR (MDRD) Non-Af 93 BUN/Creatinine Ratio 13.0 Glucose 99 Calcium 8.5 Radiography Chest X-Ray - ED: 1 View Diagnostic Testing: Radiology Impression Chest X-Ray 01/09/21 13:42 IMPRESSION: Early right upper lobe infiltrate. Electronically Signed: Stephon Quintanilla MD at 13:54 EDT , Service support , Chest CTA 01/09/21 14:28 IMPRESSION: No evidence of pulmonary embolism. Bilateral pulmonary infiltrates worse in the right hemithorax suggestive of pneumonitis associated with Covid. Electronically Signed: Stephon Quintanilla MD at 15:10 EDT , Service support , One view chest x-ray obtained interpreted by myself as increased markings in the right upper lobe. Radiology in agreement. Discharge Plan Triage Chief Complaint: Shortness of Breath ED Provider: Marcelina Roger Dx/Rx/DC Orders Clinical Impression: COVID-19 Instructions: Caring for Someone Who Has COVID-19 Prescriptions: No Action NK RF: 0 Primary Care Provider: Mauricio Shepherd Referrals: Mauricio Shepherd MD [Primary Care Provider] - 5-7 Days Disposition Disposition: Home, Self Care
[2021-01-09] MEDS: 0.9% Normal Saline 1,000 ML 150 ML IV (13:27)
[2021-01-09 13:34] LABS: Absolute Lymphocyte Count 1.78 X10^3/uL (0.83-4.51); Absolute Neutrophil Count 4.6 X10^3/uL (2.0-7.7); Basophil# 0.01 X10^3/uL; Basophil% 0.1 % (0-1); Eosinophil# 0.01 X10^3/uL; Eosinophils% 0.1 % (0-5); Hematocrit 41.1 % (37-47); Hemoglobin 13.7 g/dL (12.0-15.0); Lymphocyte # 1.78 X10^3/ul (0.83-4.51); Lymphocyte % 26.2 % (19-41); Mean Corp Hgb Conc 33.3 g/dL (32-36); Mean Corpuscular Hgb 26.7 pg (27.0-32.0); Mean Corpuscular Volume 80.1 fL (81-99); Mean Platelet Vol. 10.9 fl (6.2-12.0); Monocyte% 5.9 % (0-10); NRBC Flagged by Analyzer 0 % (0-5); Neutrophil # 4.57 X10^3/uL (2.7-7.7); Neutrophil % 67.4 % (47-70); Platelet Count 180 K/mm3 (150-450); RBC Distribution Width CV 13.6 % (11.6-14.6); Red Blood Count 5.13 M/mm3 (4.2-5.4); White Blood Count 6.8 K/mm3 (4.4-11.0)
--- NOTE | 2021-01-09 13:42 | RAD_ITS ---
STUDY: X-RAY CHEST REASON FOR EXAM: Female, 30 years old. Dyspnea TECHNIQUE: Single AP portable view of the chest. COMPARISON: Comparison is made with prior study dated 04/04/2020. FINDINGS: EKG electrodes are seen. I suspect an early right upper lobe infiltrate. There is no demonstrated pleural abnormality. Normal size heart. Normal mediastinum and saray. Normal visualized pulmonary arteries. Normal visualized aortic arch and descending thoracic aorta. Normal visualized thoracic spine. Normal visualized ribs, clavicles, and shoulders. There is no demonstrated abnormality of the visualized soft tissue structures of the upper abdomen. RAD/Chest 1 View (Portable) IMPRESSION: Early right upper lobe infiltrate. Electronically Signed: Stephon Quintanilla MD at 13:54 EDT , Service support ,
[2021-01-09 13:48] LABS: Anion Gap 8 (5-15); BUN 10 mg/dL (7-18); Calcium,Total 8.5 mg/dL (8.5-10.1); Chloride 103 mmol/L (98-107); Creatinine, Serum 0.77 mg/dL (0.55-1.02); EST Glomerular Filtration Rate 93 mL/min (>60); Est Glom Filt Rate - Afr Amer 113 mL/min (>60); Estimated Creatinine Clearance 88.37 ml/min; Glucose 99 mg/dL (74-106); Potassium 3.6 mmol/L (3.5-5.1); Sodium Level 137 mmol/L (136-145)
[2021-01-09 13:53] LABS: D-Dimer Quantitative (DVT/PE) 0.54 FEU/ug/m (0.27-0.49)
--- NOTE | 2021-01-09 14:28 | CT_ITS ---
STUDY: CTA CHEST REASON FOR EXAM: Female, 30 years old. Dyspnea, elevated d-dimer RADIATION DOSAGE (If Supplied By Facility): CTDIvol = ( 15.175 ) mGy, DLP = ( 1088.69 ) mGycm TECHNIQUE: The examination was performed with the intravenous administration of IV 100mL Isovue-370. Post-processing of the angiographic images was performed, with multiplanar reformation and 3D reconstruction. Individualized dose optimization techniques were used for this CT. COMPARISON: None. FINDINGS: Normal enhancement of the main pulmonary artery and right and left pulmonary arteries. Normal enhancement of the bilateral peripheral pulmonary arteries. There is no demonstrated pulmonary embolism. Normal thoracic aorta and visualized great vessels. There is no demonstrated aortic dissection. Normal heart and pericardium. Normal mediastinum. Normal hilar regions. Normal visualized trachea and bronchi. The lungs are well expanded. Multiple bilateral pulmonary infiltrates worse in the right upper lobe as well as in the right lung base. These are located in the peripheral aspects of both lungs suggestive of a pneumonitis associated with Covid. Normal pleura. Normal chest wall structures. Normal osseous structures. Normal visualized upper abdomen. CT/CTA Chest W/WO Contrast IMPRESSION: No evidence of pulmonary embolism. Bilateral pulmonary infiltrates worse in the right hemithorax suggestive of pneumonitis associated with Covid. Electronically Signed: Stephon Quintanilla MD at 15:10 EDT , Service support ,
[2021-01-09 15:00] VITALS: BP 126/89; PULSE 96; RESP 16; TEMP 37.1; O2SAT 97
[2021-01-09 16:09] VITALS: BP 114/83; PULSE 100; RESP 18; TEMP 37.2; O2SAT 95
== END 2021-01-09 16:14 | disposition home or self-care (01) ==
PROVIDERS: Emergency Provider Emergency Medicine; PCP Family Medicine
DX: U07.1 COVID-19 (principal); Z87.891 Personal history of nicotine dependence
CPT/HCPCS: 36415; 71045; 71275; 80048; 85025; 85379; 87040; 96360; 96361; 99283; J7030; Q9967

== ENCOUNTER → 2022-06-19 | Outpatient (CLI) | payer OTHER, MEDICAID, SELFPAY ==
[2022-06-19 18:41] LABS: Vitamin B12 369 pg/mL (211-911); Vitamin D,25 Hydroxy 19.8 ng/mL
[2022-06-19 18:47] LABS: Iron 49 ug/dL (50-170); Thyroid Stim Hormone (TSH) 2.49 uIU/mL (0.358-3.74)
== END | disposition home or self-care (01) ==
LOC: LABSPEC 18:06
PROVIDERS: PCP Family Medicine; Visit Provider Family Medicine
DX: R53.83 Other fatigue (principal)
CPT/HCPCS: 36415; 82306; 82533; 82607; 83540; 84443

== ENCOUNTER → 2022-06-24 | Outpatient (CLI) | payer OTHER, MEDICAID, SELFPAY ==
[2022-06-24 08:36] LABS: Vitamin B12 327 pg/mL (211-911); Vitamin D,25 Hydroxy 28.9 ng/mL
== END | disposition home or self-care (01) ==
LOC: LAB 06:56
PROVIDERS: PCP Family Medicine; Referring Provider Family Medicine; Visit Provider Family Medicine
DX: E55.9 Vitamin D deficiency, unspecified (principal); E53.8 Deficiency of other specified B group vitamins
CPT/HCPCS: 36415; 82306; 82607

== ENCOUNTER → 2022-10-06 | Outpatient (CLI) | payer OTHER, MEDICAID, SELFPAY | END | disposition home or self-care (01) | LOC: SL 20:16 | PROVIDERS: PCP Family Medicine; Visit Provider Internal Medicine Pulmonary Disease | DX: G47.10 Hypersomnia, unspecified (principal) | CPT/HCPCS: 95810 ==

== ENCOUNTER 2023-12-22 16:19 | Emergency (ER) | payer OTHER, SELFPAY ==
[2023-12-22 16:20] VITALS: BP 152/102; PULSE 108; RESP 18; TEMP 36.4; O2SAT 96; BMI 46.3
--- NOTE | 2023-12-22 16:29 | ED.RN ---
Attempted to call multiple different numbers to determine if drug testing is required. no answer at this time.
--- NOTE | 2023-12-22 16:30 | EDS_ITS ---
HPI History of Present Illness Chief Complaint: Lower Extremity Injury Detail of Chief Complaint: Right great toe injury Informant: patient Narrative Narrative: Patient presents to the emergency department with injury to her right great toe. Patient states that she was at work when she dropped the end of the bariatric bed onto her right foot. She was wearing tennis shoes. Complaining of pain to the right great toe. [facility] Medical History (Updated 12/22/23 @ 16:[address] Marcelina Roger, DO) Contact with and (suspected) exposure to other viral communicable diseases Acute maxillary sinusitis, unspecified School physical exam Medical Home Medications ?Medication ?Instructions ?Recorded ?Last Taken ?Type dexamethasone 6 mg tablet 6 mg PO DAILY #5 tabs 02/18/22 Unknown Rx Allergy/AdvReac Type Severity Reaction Status Date / Time No Known Allergies Allergy Verified 12/22/23 16:20 Family History no significant family his Surgical History H/O oral surgery History of colposcopy Social History Smoking Status: Former smoker ROS ROS ED Review of Systems ROS Unobtainable: other Constitutional Constitutional ED: Reports lethargy; Denies chills, fever(s), sweats or weight loss Eyes Eyes: Denies blurry vision, change in vision or diplopia ENT ENT ED: Denies rhinorrhea or sore throat Cardiovascular Cardiovascular: Denies chest pain, orthopnea or racing heartbeat Respiratory/Chest Respiratory/Chest: Denies cough, dyspnea, dyspnea on exertion, orthopnea or sputum Gastrointestinal Gastrointestinal: Denies abdominal pain, diarrhea, nausea or vomiting Genitourinary Genitourinary ED: Denies dysuria, hematuria or urinary frequency Musculoskeletal Musculoskeletal: Reports other Details: Right great toe pain/injury ; Denies arthralgias, back pain, myalgias or neck pain Integumentary Denies abscess, Abrasions or rash Neurologic Neurologic: Denies headache(s) or weakness Psychiatric Psychiatric: Denies anxiety, depression or suicidal thoughts Endocrine Endocrinology: Denies polydipsia, polyphagia or polyuria Hematologic/Lymphatic Hematologic/Lymphatic: Denies easy bleeding, easy bruising or lymphadenopathy Allergic/Immunologic Allergic/Immunologic ED: Denies mouth swelling, tongue swelling or urticaria EXAM Physical Exam Const Vital Signs: 12/22/23 16:20 Temperature 97.6 F L Temperature Source Temporal Pulse Rate 108 H Respiratory Rate 18 Blood Pressure 152/102 H Blood Pressure Mean 118 Pulse Ox 96 Oxygen Delivery Method Room Air Positive well nourished and well developed General Appearance ED: well developed and NAD HEENT Reports TM's clear and moist mucous membranes normocephalic and atraumatic; Negative for trauma or tenderness Tympanic Membrane ED: Yes TM's clear Eyes PERRL and EOMs intact bilaterally General Eye ED: Negative for pale conjunctiva or scleral icterus Neck no lymphadenopathy, supple and no JVD General: Negative for tenderness Chest Wall inspection of chest normal and palpation of chest normal Chest: Negative for tenderness Resp normal respiratory effort and clear to auscultation bilaterally Effort and Inspection: Negative for respiratory distress or pain with movement Auscultation: Negative for rhonchi, wheezes or diminished lung sounds Cardio regular rate, regular rhythm, S1 normal heart sound, S2 normal heart sound and no murmurs Peripheral Pulses: pulses 2+ throughout GI normal to inspection, nondistended, normoactive bowel sounds, soft to palpation, non-tender, non-distended and no masses Back/Spine no CVA tenderness and no thoracic nor lumbar tenderness Extremity Extremity Narrative: Right great toe-no obvious deformity. There is no ecchymosis or bruising. She has mild diffuse tenderness about the IP joint. No pain at the MTP joints. No pain at the ankle. General Extremety ED: Negative for edema General Extremity: Negative for edema Neuro oriented x3, CN's II-XII intact bilaterally, no sensory deficits noted and gait normal Sensorium / Orientation: awake, alert, oriented to person, oriented to place and oriented to time Motor Exam: strength 5/5 throughout and strength abnormal Psych mental status grossly normal Skin no rashes or lesions noted and no wounds MDM MDM MDM Narrative Medical decision making narrative: Patient with injury to her right great toe. X-rays obtained on mitral rotation showed no fracture. She does not want thing for pain. She does not need work restrictions. Advised to use ibuprofen or Tylenol for any discomfort. Radiography Diagnostic Testing: Three-view x-rays of the right great toe obtained interpreted by myself as no evidence of fracture or dislocation Discharge Plan Triage Chief Complaint: Lower Extremity Injury ED Provider: Marcelina Roger Dx/Rx/DC Orders Clinical Impression: Contusion of great toe of right foot Instructions: ED Foot Contusion Prescriptions: No Action dexamethasone 6 mg tablet 6 mg PO DAILY Qty: 5 0RF Primary Care Provider: Farhan Shepherd Referrals: [facility] [Group of Physicians] - 3-5 Days Farhan Shepherd MD [Primary Care Provider] - Print Language: Austrian Disposition Disposition: Home, Self Care
--- NOTE | 2023-12-22 16:35 | RAD_ITS ---
EXAM: XR RIGHT TOES, 2 OR MORE VIEWS CLINICAL INDICATION: injury TECHNIQUE: Frontal, lateral and oblique views of the toes of the right foot. COMPARISON: No relevant prior studies available. FINDINGS: BONES/JOINTS: Unremarkable. No acute fracture. No dislocation. SOFT TISSUES: Unremarkable. No radiopaque foreign body. RAD/Toe(s) Min 2 Views IMPRESSION: Negative right toe x-rays. Electronically Signed: Jefe Francois MD at 17:03 EDT ,
[2023-12-22 17:19] VITALS: BP 129/76; PULSE 64; RESP 18; TEMP 36.4; O2SAT 99
== END 2023-12-22 18:06 | disposition home or self-care (01) ==
LOC: ED 17:00
PROVIDERS: Emergency Provider Emergency Medicine; PCP Family Medicine; Referring Provider Emergency Medicine; Visit Provider Emergency Medicine
DX: S90.111A Contusion of right great toe without damage to nail, initial encounter (principal); Z87.891 Personal history of nicotine dependence; Y99.0 Civilian activity done for income or pay; W20.8XXA Other cause of strike by thrown, projected or falling object, initial encounter; Y92.89 Other specified places as the place of occurrence of the external cause
CPT/HCPCS: 73660; 99282

== ENCOUNTER → 2024-11-10 | Outpatient (CLI) | payer OTHER, MEDICAID, SELFPAY | END | disposition home or self-care (01) | LOC: LABSPEC 16:21 | PROVIDERS: PCP Family Medicine; Visit Provider Family Medicine | DX: N39.0 Urinary tract infection, site not specified (principal) | CPT/HCPCS: 87086; 87088 ==

== ENCOUNTER → 2025-03-26 | Outpatient (CLI) | payer OTHER, SELFPAY | END | disposition home or self-care (01) | LOC: LABSPEC 09:23 | PROVIDERS: PCP Family Medicine | DX: N39.0 Urinary tract infection, site not specified (principal) | CPT/HCPCS: 87086; 87088 ==